=== PATIENT | female | born 1980 | race Caucasian/White ===

== ENCOUNTER 2016-08-04 13:53 | Inpatient (IN) | payer OTHER ==
[2016-08-04] VITALS (9 sets, daily range): BP systolic 116–149; BP diastolic 71–96; PULSE 88–129; RESP 16–18; TEMP 98.3–103; O2SAT 94–98
[~2016-08-04] VITALS: Ht 167.6 cm; Wt 77.5 kg
[~2016-08-04 13:53] MED LIST: HYDR-3533 PO; PERC7.5T13 PO; PROM12.54 PO; WELLTAB39 PO
[2016-08-04] MEDS ORDERED: SODIUM CHLOR 0.9% 1000 ML INJ 400 ML IV ONE (14:09)
[2016-08-04] MEDS ORDERED: SODIUM CHLOR 0.9% 1000 ML INJ 1,000 ML IV ONE ×2 (14:09)
[2016-08-04] MEDS ORDERED: IBUPROFEN 800 MG TAB PO ONE (14:15)
--- NOTE | 2016-08-04 14:27 | PD ---
HPI Chief Complaint: Cold / Flu Symptoms Time Seen by Provider: 14:05 Travel History International Travel<30 days: No Contact w/Intl Traveler<30days: No Traveled to known affect area: No History of Present Illness HPI Patient's 35-year-old female who presents emergency for evaluation of fevers, body aches, headache. Patient states her symptoms started 3 days ago. She's been taking acetaminophen for her fevers. She denies any nausea, vomiting, chest pain, shortness of breath, abdominal pain, diarrhea. Patient states she is currently being treated for TB exposure, for the last 3 months. 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 She denies any neck pain. PFSH Past Medical History Arthritis: No Anxiety: Yes Depression: Yes Heart Rhythm Problems: No Cancer: No Cardiovascular Problems: Yes High Cholesterol: No Chest Pain: Yes Congestive Heart Failure: No Cerebrovascular Accident: No Diabetes: No Diminished Hearing: No Endocrine: No GERD: No Glaucoma: No Genitourinary: Yes (REDUCED KIDNEY FUNCTION secondary to overuse of ibuprofen) Headaches: Yes Hepatitis: No Hiatal Hernia: No Hypertension: No Immune Disorder: No Kidney Stones: No Musculoskeletal: No Reproductive: Yes (endometriosis) Respiratory: No Immunizations Current: Yes Migraines: Yes Renal Failure: No Seizures: No Thyroid Disease: No Ulcer: Yes ?: Not : 4 Para: 2 Miscarriage: 2 Dilation and Curettage (D&C): Yes Past Surgical History Abdominal Surgery: Yes (cholectystectomy, hysterectomy) Body Medical Devices: BREAST IMPLANTS Cardiac Surgery: No Section: Yes Cholecystectomy: Yes Ear Surgery: No Endocrine Surgery: No Eye Surgery: Yes (SINUS ) Genitourinary Surgery: No Gynecologic Surgery: Yes (laparoscopy) Hysterectomy: Yes Joint Replacement: No Oral Surgery: Yes (WISDOM TEETH EXTRACTION) Pacemaker: No Thoracic Surgery: No Other Surgery: Yes (sinus surgery, breast augmetation) Social History Alcohol Use: Yes (occasional) Tobacco Use: No Substance Use: No Allergies-Medications (Allergen,Severity, Reaction): Coded Allergies: Nonsteroidal Anti-Inflammatory Agts (Verified Adverse Reaction, Intermediate, Kidney Dysfunction, 08/04/16) Had kidney dysfunction after taking topamax for migraines. Was told not to take NSAIDS Reported Meds & Prescriptions Reported Meds & Active Scripts Active Reported Ambien (Zolpidem Tartrate) 10 Mg Tab 10 Mg PO HS PRN Promethazine (Promethazine HCl) 12.5 Mg Tab 12.5 Mg PO Q4H PRN Wellbutrin Xl 24 HR (Bupropion HCl) 300 Mg Tab 300 Mg PO DAILY Wellbutrin Xl 24 HR (Bupropion HCl) 150 Mg Tab 150 Mg PO DAILY Isoniazid 100 Mg Tab 100 Mg PO DAILY Review of Systems Except as stated in HPI: all other systems reviewed are Neg General / Constitutional: Positive: Fever, Chills HENT: Positive: Headaches, No: Neck Stiffness, Neck Pain Cardiovascular: No: Chest Pain or Discomfort Respiratory: Positive: Cough, No: Shortness of Breath Gastrointestinal: No: Nausea, Vomiting, Diarrhea, Abdominal Pain Musculoskeletal: Positive: Myalgias Neurologic: Positive: Weakness, Dizziness Physical Exam Narrative GENERAL: Well-developed, well-nourished, alert female. Appears acutely ill, in no acute distress. SKIN: Warm and dry. HEAD: Atraumatic. Normocephalic. EYES: Pupils equal and round. No scleral icterus. No injection or drainage. ENT: No nasal bleeding or discharge. Mucous membranes pink and moist. NECK: Trachea midline. No JVD. CARDIOVASCULAR: Tachycardic, No murmur appreciated. RESPIRATORY: No accessory muscle use. Clear to auscultation. Diminished slightly in bases. GASTROINTESTINAL: Abdomen soft, non-tender, nondistended. Hepatic and splenic margins not palpable. MUSCULOSKELETAL: No obvious deformities. No clubbing. No cyanosis. No edema. NEUROLOGICAL: Awake and alert. No obvious cranial nerve deficits. Motor grossly within normal limits. Normal speech. No meningeal signs PSYCHIATRIC: Appropriate mood and affect; insight and judgment normal. Data Data Last Documented VS Vital Signs Date Time Temp Pulse Resp B/P Pulse Ox O2 Delivery O2 Flow Rate FiO2 08/04/16 15:14 101.8 109 18 142/76 98 Room Air Orders Electrocardiogram (08/04/16 14:09) Complete Blood Count With Diff (08/04/16 14:09) Comprehensive Metabolic Panel (08/04/16 14:09) Lactic Acid Sepsis Protocol (08/04/16 14:09) Urinalysis - C+S If Indicated (08/04/16 14:09) Influenzae A/B Antigen (08/04/16 14:09) Blood Culture (08/04/16 14:09) Chest, Single Ap (08/04/16 14:09) Blood Glucose (08/04/16 14:09) Ecg Monitoring (08/04/16 14:09) Iv Access Insert/Monitor (08/04/16 14:09) Oximetry (08/04/16 14:09) Oxygen Administration (08/04/16 14:09) Sodium Chlor 0.9% 1000 Ml Inj (Ns 1000 M (08/04/16 14:09) Sodium Chlor 0.9% 1000 Ml Inj (Ns 1000 M (08/04/16 14:09) Sodium Chlor 0.9% 1000 Ml Inj (Ns 1000 M (08/04/16 14:09) Ed Urine Pregnancytest Poc (08/04/16 14:09) Ibuprofen (Motrin) (08/04/16 14:15) Vancomycin Inj (Vancomycin Inj) (08/04/16 14:52) Piperacil-Tazo 4.5 Gm Premix (Zosyn 4.5 (08/04/16 14:52) Urine Culture (08/04/16 14:15) Azithromycin Inj (Zithromax Inj) (08/04/16 15:05) Potassium Chloride (Kcl) (08/04/16 15:15) Acetamin-Hydrocod 325-5 Mg ([place] 5-325 (08/04/16 15:15) Admit Order (Ed Use Only) (08/04/16 15:27) Sputum Culture And Gram Stain (08/04/16 15:27) Pneumococcal Urinary Antigen (08/04/16 15:27) Legionella Urinary Antigen (08/04/16 15:27) Labs Laboratory Tests Test 08/04/16 08/04/16 14:15 14:25 White Blood Count 9.4 TH/MM3 Red Blood Count 4.49 MIL/MM3 Hemoglobin 13.1 GM/DL Hematocrit 39.2 % Mean Corpuscular Volume 87.2 FL Mean Corpuscular Hemoglobin 29.0 PG Mean Corpuscular Hemoglobin 33.3 % Concent Red Cell Distribution Width 12.1 % Platelet Count 239 TH/MM3 Mean Platelet Volume 8.8 FL Neutrophils (%) (Auto) 73.6 % Lymphocytes (%) (Auto) 16.9 % Monocytes (%) (Auto) 8.2 % Eosinophils (%) (Auto) 0.8 % Basophils (%) (Auto) 0.5 % Neutrophils # (Auto) 6.9 TH/MM3 Lymphocytes # (Auto) 1.6 TH/MM3 Monocytes # (Auto) 0.8 TH/MM3 Eosinophils # (Auto) 0.1 TH/MM3 Basophils # (Auto) 0.0 TH/MM3 CBC Comment DIFF FINAL Differential Comment Urine Collection Type CLEAN CATCH Urine Color YELLOW Urine Turbidity CLEAR Urine pH 6.5 Urine Specific [place] 1.022 Urine Protein 30 mg/dL Urine Glucose (UA) NEG mg/dL Urine Ketones TRACE mg/dL Urine Occult Blood MOD Urine Nitrite NEG Urine Bilirubin NEG Urine Leukocyte Esterase NEG Urine RBC 20-24 /hpf Urine WBC 0-2 /hpf Urine Squamous Epithelial 0-5 /hpf Cells Urine Bacteria MOD /hpf Microscopic Urinalysis Comment CULTURE INDICATED Urine Collection Time 14:15 Sodium Level 141 MEQ/L Potassium Level 3.3 MEQ/L Chloride Level 107 MEQ/L Carbon Dioxide Level 25.1 MEQ/L Anion Gap 9 MEQ/L Blood Urea Nitrogen 7 MG/DL Creatinine 0.92 MG/DL Estimat Glomerular Filtration 70 ML/MIN Rate Random Glucose 100 MG/DL Calcium Level 8.2 MG/DL Total Bilirubin 0.5 MG/DL Aspartate Amino Transf 9 U/L (AST/SGOT) Alanine Aminotransferase 14 U/L (ALT/SGPT) Alkaline Phosphatase 28 U/L Total Protein 7.5 GM/DL Albumin 3.6 GM/DL Lactic Acid Level 1.3 mmol/L [facility] Medical Decision Making Medical Screen Exam Complete: Yes Emergency Medical Condition: Yes Interpretation(s) Last Impressions Chest X-Ray 08/04/16 1409 Signed Impressions: Service Date/Time: Thursday, August 04, 2016 14:47 - CONCLUSION: Left lower lobe airspace consolidation. Given the history of fever and cough this is characteristic of an infectious process/pneumonia. Jimmie Arredondo MD Laboratory Tests Test 08/04/16 08/04/16 14:15 14:25 White Blood Count 9.4 TH/MM3 Red Blood Count 4.49 MIL/MM3 Hemoglobin 13.1 GM/DL Hematocrit 39.2 % Mean Corpuscular Volume 87.2 FL Mean Corpuscular Hemoglobin 29.0 PG Mean Corpuscular Hemoglobin 33.3 % Concent Red Cell Distribution Width 12.1 % Platelet Count 239 TH/MM3 Mean Platelet Volume 8.8 FL Neutrophils (%) (Auto) 73.6 % Lymphocytes (%) (Auto) 16.9 % Monocytes (%) (Auto) 8.2 % Eosinophils (%) (Auto) 0.8 % Basophils (%) (Auto) 0.5 % Neutrophils # (Auto) 6.9 TH/MM3 Lymphocytes # (Auto) 1.6 TH/MM3 Monocytes # (Auto) 0.8 TH/MM3 Eosinophils # (Auto) 0.1 TH/MM3 Basophils # (Auto) 0.0 TH/MM3 CBC Comment DIFF FINAL Differential Comment Urine Collection Type CLEAN CATCH Urine Color YELLOW Urine Turbidity CLEAR Urine pH 6.5 Urine Specific [place] 1.022 Urine Protein 30 mg/dL Urine Glucose (UA) NEG mg/dL Urine Ketones TRACE mg/dL Urine Occult Blood MOD Urine Nitrite NEG Urine Bilirubin NEG Urine Leukocyte Esterase NEG Urine RBC 20-24 /hpf Urine WBC 0-2 /hpf Urine Squamous Epithelial 0-5 /hpf Cells Urine Bacteria MOD /hpf Microscopic Urinalysis Comment CULTURE INDICATED Urine Collection Time 14:15 Sodium Level 141 MEQ/L Potassium Level 3.3 MEQ/L Chloride Level 107 MEQ/L Carbon Dioxide Level 25.1 MEQ/L Anion Gap 9 MEQ/L Blood Urea Nitrogen 7 MG/DL Creatinine 0.92 MG/DL Estimat Glomerular Filtration 70 ML/MIN Rate Random Glucose 100 MG/DL Calcium Level 8.2 MG/DL Total Bilirubin 0.5 MG/DL Aspartate Amino Transf 9 U/L (AST/SGOT) Alanine Aminotransferase 14 U/L (ALT/SGPT) Alkaline Phosphatase 28 U/L Total Protein 7.5 GM/DL Albumin 3.6 GM/DL Lactic Acid Level 1.3 mmol/L Vital Signs Date Time Temp Pulse Resp B/P Pulse Ox O2 Delivery O2 Flow Rate FiO2 08/04/16 14:01 103.0 129 16 146/96 94 Differential Diagnosis Sepsis versus influenza versus urinary tract infection versus acute kidney injury versus pneumonia versus other Narrative Course Patient is a 35-year-old female who presented to emergency for evaluation of fevers, body aches, headaches. Patient symptoms and ongoing for approximately 3 days. On arrival patient was noted to have a heart rate in the 130s is febrile with a temp of 103. Sepsis protocol initiated. Initial EKG shows sinus tachycardia with a rate of 110. IV fluids at 30 mL/kg ordered per sepsis protocol. Ibuprofen 800 mg ordered for fever. CBC shows no elevated white count but patient does have a left shift. Chemistry with potassium at 3.3, oral replacement ordered. Lactic acid is normal, urinalysis with elevated ketones and blood. Patient is a completion of second liter of IV fluids and remains tachycardic with a rate of 110. Temp reassessed at 101.8 after ibuprofen was administered approximately 30 minutes ago. Influenza swab was negative. Fever and heart rate meet sepsis criteria. Chest x-ray shows a left lower lobe consolidation, this coupled with patient's presenting symptoms is likely for an infectious process/pneumonia. Again patient was exposed to TB approximately 3 months ago and is under going treatment for that. Discussed with my attending physician. Patient would benefit from inpatient stay, IV antibiotics, IV fluid replacement, possible evaluation by pulmonology due to exposure to TB. Patient is agreeable to stay. Dr. Fournier accepted admission. Legionella and pneumococcal antigen's ordered , sputum culture ordered and pending. Patient given Lortab per my attending physician for headache. She is resting comfortably with at bedside. Sepsis Criteria SIRS Criteria (2 or more): Temp > 100.9 or < 96.8, Heart rate over 90 Sepsis Criteria (SIRS+source): Infect source susp/known (pulmonary) Physician Communication Physician Communication Dr. Aleksandr Fournier Diagnosis Primary Impression: Pneumonia Qualified Code: J18.1 - Pneumonia of left lower lobe due to infectious organism Additional Impressions: Tuberculosis exposure On isoniazid therapy Hematuria Sepsis Qualified Code: A41.9 - Sepsis, due to unspecified organism Hypokalemia Admitting Information Admitting Physician Requests: Admit Condition: Hellen Holloway Aug 04, 2016 14:27
[2016-08-04 14:38] LABS: AUTOMATED NEUTROPHIL # 6.9 TH/MM3 (1.8-7.7); BASOPHIL % 0.5 % (0.0-2.0); EOSINOPHIL # 0.1 TH/MM3 (0-0.4); EOSINOPHIL % 0.8 % (0.0-4.0); HEMATOCRIT 39.2 % (35.0-46.0); HEMO FLAGS DIFF FINAL; LYMPH % 16.9 % (9.0-44.0); LYMPHOCYTE # 1.6 TH/MM3 (1.0-4.8); MEAN CELL VOLUME 87.2 FL (80.0-100.0); MEAN CORPUSCULAR HGB CONC 33.3 % (32.0-36.0); MONO % 8.2 % (0.0-8.0); NEUT % 73.6 % (16.0-70.0); PLATELET COUNT 239 TH/MM3 (150-450); RED BLOOD COUNT 4.49 MIL/MM3 (4.00-5.30); RED CELL DISTRIBUTION WIDTH 12.1 % (11.6-17.2); WHITE BLOOD COUNT 9.4 TH/MM3 (4.0-11.0)
[2016-08-04 14:45] LABS: GLUCOSE,URINE NEG (NEG); KETONE, URINE TRACE mg/dL (NEG); NITRITE,URINE NEG (NEG); PH, URINE 6.5 (5.0-8.5)
[2016-08-04 14:46] LABS: BLOOD, URINE MOD (NEG)
[2016-08-04] MEDS ORDERED: ISON100T2 PO (14:49)
[2016-08-04 14:50] LABS: CHLORIDE 107 MEQ/L (98-107); POTASSIUM 3.3 MEQ/L (3.5-5.1); SODIUM (NA) 141 MEQ/L (136-145)
[2016-08-04] MEDS ORDERED: PIPERACIL-TAZO 4.5 GM PREMIX 100 ML IV STA (14:52)
[2016-08-04] MEDS ORDERED: VANCOMYCIN INJ 1,000 MG in SODIUM CHLOR 0.9% 250 ML INJ 250 ML IV STA (14:52)
[2016-08-04 14:53] LABS: BACTERIA, URINE MOD /hpf; COMMENT (UR) CULTURE INDICATED; CULTURE IF INDICATED CULTURE INDICATED; METHOD OF COLLECTION CLEAN CATCH; SQUAMOUS EPITHELIAL CELL URINE 0-5 /hpf (0-5); URINE COLOR YELLOW (YELLW/STRAW); WBC, URINE 0-2 /hpf (0-5)
[2016-08-04 14:56] LABS: ANION GAP 9 MEQ/L (5-15); BICARBONATE 25.1 MEQ/L (21.0-32.0); BLOOD UREA NITROGEN 7 MG/DL (7-18)
[2016-08-04 14:59] LABS: ALT (GPT) 14 U/L (10-53); AST (GOT) 9 U/L (15-37); GLOMERULAR FILTRATION RATE 70 ML/MIN (>89)
[2016-08-04 15:01] LABS: TOTAL BILIRUBIN ADULT 0.5 MG/DL (0.2-1.0)
[2016-08-04 15:02] LABS: ALKALINE PHOSPHATASE 28 U/L (45-117)
--- NOTE | 2016-08-04 15:02 | RADHPO ---
EXAM DATE/TIME: 08/04/2016 14:47 [facility] COMPARISON: CT ABDOMEN & PELVIS W CONTRAST, November 10, 2015, 13:02. INDICATIONS : Fever, cough, short of breath, body aches MEDICAL HISTORY : None. SURGICAL HISTORY : None. ENCOUNTER: Initial ACUITY: 3 days PAIN SCORE: 0/10 LOCATION: Bilateral chest FINDINGS: AP view of the chest demonstrates a normal-sized cardiac silhouette. There is an opacity in the retro cardiac region that appears to represent airspace consolidation. No pleural effusion or pneumothorax is identified. Breast implants are present. CONCLUSION: Left lower lobe airspace consolidation. Given the history of fever and cough this is characteristic o f an infectious process/pneumonia. Jimmie Arredondo MD on August 04, 2016 at 15:00 Board Certified Radiologist. This report was verified electronically.
[2016-08-04] MEDS ORDERED: AZITHROMYCIN INJ 500 MG in SODIUM CHLOR 0.9% 250 ML INJ 250 ML IV STA (15:05)
[2016-08-04] MEDS ORDERED: POTASSIUM CHLORIDE 20 MEQ CONTROLLED RELEASE TAB PO ONE (15:15)
[2016-08-04] MEDS ORDERED: ACETAMINOPHEN/HYDROcodone 325 MG/5 MG TAB PO ONE (15:15)
[2016-08-04] MEDS ORDERED: SODIUM CHLORIDE 0.9% FLUSH 5 ML FLUSH IVF PRN (16:00)
[2016-08-04] MEDS ORDERED: SODIUM CHLORIDE 0.9% FLUSH 5 ML FLUSH IV FLUSH PRN (16:00)
[2016-08-04] MEDS ORDERED: PROM12.54 PO (16:56)
[2016-08-04] MEDS ORDERED: AMBI10TA PO (16:56)
[2016-08-04] MEDS ORDERED: BUPR150XL PO (16:56)
[2016-08-04] MEDS ORDERED: WELLTAB39 PO (16:56)
[2016-08-04] MEDS: PROMETHAZINE HCL 25 MG TAB PO PRN (17:24)
[2016-08-04] MEDS: NS + KCL 20 MEQ INJ 1,000 ML IV SCH (17:26)
[2016-08-04] MEDS ORDERED: ACETAMIN 325 MG/BUTALBITAL 50 MG/CAFFEINE 40 MG TAB PO ONE (17:30)
[2016-08-04] MEDS ORDERED: ZOLPIDEM TARTRATE 10 MG TAB PO PRN ×2 (17:30→19:15)
--- NOTE | 2016-08-04 19:01 | HHI.HP ---
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 She has been using Tylenol for her fevers as she tries to avoid nonsteroidal anti- inflammatories due to previous problems with kidney function while taking nonsteroidals. Denies any recent foreign travel. 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 She has had no symptoms of TB such as night sweats, cough, weight loss. She has been compliant with her isoniazid. Per healthcare provider in the ER patient was noted to be febrile and have infiltrate on chest x-ray with tachycardia and mild tachypnea. She was given IV fluids and antibiotics. Patient reports she still has a headache which is common for her given her migraine history but not the worst headache of her life. Headache has responded some to current medication. She feels a little bit stronger since getting the IV fluids and having her fever controlled. She does not appear toxic. Review of Systems Constitutional: COMPLAINS OF: Diaphoretic episodes, Fatigue, Fever, Chills, DENIES: Weight gain, Weight loss, Dizziness, Change in appetite, Night Sweats Endocrine: DENIES: Heat/cold intolerance, Polydipsia, Polyuria, Polyphagia Eyes: DENIES: Blurred vision, Diplopia, Eye inflammation, Eye pain, Vision loss , Photosensitivity, Double Vision Ears, nose, mouth, throat: DENIES: Tinnitus, Hearing loss, Vertigo, Nasal discharge, Oral lesions, Throat pain, Hoarseness, Ear Pain, Running Nose, Epistaxis, Sinus Pain, Toothache, Odynophagia Respiratory: COMPLAINS OF: Cough, DENIES: Apneas, Snoring, Wheezing, Hemoptysis, Sputum production, Shortness of breath Cardiovascular: DENIES: Chest pain, Palpitations, Syncope, Dyspnea on Exertion , PND, Lower Extremity Edema, Orthopnea, Claudication Gastrointestinal: COMPLAINS OF: Vomiting, DENIES: Abdominal pain, Black stools , Bloody stools, BRB per rectum, Constipation, Diarrhea, GERD, Nausea, Reflux, Difficulty Swallowing, Anorexia, See HPI Musculoskeletal: DENIES: Joint pain, Muscle aches, Stiffness, Joint Swelling, Back pain, Neck pain Hematologic/lymphatic: DENIES: Bruising, Lymphadenopathy Immunologic/allergic: DENIES: Eczema, Urticaria Neurologic: COMPLAINS OF: Headache Psychiatric: COMPLAINS OF: Anxiety Past Family Social History Past Medical History Anxiety Depression Migrainous headaches Hx endometriosis, adenomyosis Past Surgical History [id number] for endometriosis/adenomyosis Breast implantation section 1 Unspecified sinus repair Dilation and curettage [place] teeth removal Reported Medications Ambien (Zolpidem Tartrate) 10 Mg Tab 10 Mg PO HS PRN Promethazine (Promethazine HCl) 12.5 Mg Tab 12.5 Mg PO Q4H PRN Wellbutrin Xl 24 HR (Bupropion HCl) 300 Mg Tab 300 Mg PO DAILY Wellbutrin Xl 24 HR (Bupropion HCl) 150 Mg Tab 150 Mg PO DAILY Isoniazid 100 Mg Tab 100 Mg PO DAILY since April 2016. Allergies: Coded Allergies: Nonsteroidal Anti-Inflammatory Agts (Verified Adverse Reaction, Intermediate, Kidney Dysfunction, 08/04/16) Had kidney dysfunction after taking topamax for migraines. Was told not to take NSAIDS Family History Multiple family members with migraines, otherwise noncontributory. Social History No tobacco History of occasional alcohol but no alcohol since April 2016 when she started isoniazid Denies illicit drugs She is and has 2 biological children. 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 Physical Exam Vital Signs Vital Signs Date Time Temp Pulse Resp B/P Pulse Ox O2 Delivery O2 Flow Rate FiO2 08/04/16 17:38 93 08/04/16 17:00 101.0 98 16 140/83 98 08/04/16 16:00 98 21 08/04/16 15:14 101.8 109 18 142/76 98 Room Air 08/04/16 14:42 97 Room Air 08/04/16 14:42 103.0 107 18 149/83 98 Room Air 08/04/16 14:01 103.0 129 16 146/96 94 Physical Exam GENERAL: This is a well-nourished, well-developed patient, in no apparent distress. SKIN: No rashes, ecchymoses or lesions. Cool and dry. HEAD: Atraumatic. Normocephalic. No temporal or scalp tenderness. EYES: Pupils equal round and reactive. Extraocular motions intact. No scleral icterus. No injection or drainage. ENT: Nose without bleeding, purulent drainage or septal hematoma. Airway patent. NECK: Trachea midline. No JVD or lymphadenopathy. Supple, nontender, no meningeal signs. CARDIOVASCULAR: Regular rate and rhythm without murmurs, gallops, or rubs. RESPIRATORY: Clear to auscultation. Breath sounds equal bilaterally. No wheezes , rales, or rhonchi. No egophony. GASTROINTESTINAL: Abdomen soft, non-tender, nondistended. No hepato-splenomegaly , or palpable masses. No guarding. MUSCULOSKELETAL: Extremities without clubbing, cyanosis, or edema. No joint tenderness, effusion, or edema noted. No calf tenderness. Negative Homans sign bilaterally. NEUROLOGICAL: Awake and alert. Cranial nerves II through XII intact. Motor and sensory grossly within normal limits. Five out of 5 muscle strength in all muscle groups. Normal speech. Laboratory Laboratory Tests Test 08/04/16 08/04/16 14:15 14:25 White Blood Count 9.4 Red Blood Count 4.49 Hemoglobin 13.1 Hematocrit 39.2 Mean Corpuscular Volume 87.2 Mean Corpuscular Hemoglobin 29.0 Mean Corpuscular Hemoglobin 33.3 Concent Red Cell Distribution Width 12.1 Platelet Count 239 Mean Platelet Volume 8.8 Neutrophils (%) (Auto) 73.6 Lymphocytes (%) (Auto) 16.9 Monocytes (%) (Auto) 8.2 Eosinophils (%) (Auto) 0.8 Basophils (%) (Auto) 0.5 Neutrophils # (Auto) 6.9 Lymphocytes # (Auto) 1.6 Monocytes # (Auto) 0.8 Eosinophils # (Auto) 0.1 Basophils # (Auto) 0.0 CBC Comment DIFF FINAL Differential Comment Urine Collection Type CLEAN CATCH Urine Color YELLOW Urine Turbidity CLEAR Urine pH 6.5 Urine Specific [place] 1.022 Urine Protein 30 Urine Glucose (UA) NEG Urine Ketones TRACE Urine Occult Blood MOD Urine Nitrite NEG Urine Bilirubin NEG Urine Leukocyte Esterase NEG Urine RBC 20-24 Urine WBC 0-2 Urine Squamous Epithelial 0-5 Cells Urine Bacteria MOD Microscopic Urinalysis Comment CULTURE INDICATED Urine Collection Time 14:15 Sodium Level 141 Potassium Level 3.3 Chloride Level 107 Carbon Dioxide Level 25.1 Anion Gap 9 Blood Urea Nitrogen 7 Creatinine 0.92 Estimat Glomerular Filtration 70 Rate Random Glucose 100 Calcium Level 8.2 Total Bilirubin 0.5 Aspartate Amino Transf 9 (AST/SGOT) Alanine Aminotransferase 14 (ALT/SGPT) Alkaline Phosphatase 28 Total Protein 7.5 Albumin 3.6 Lactic Acid Level 1.3 Date/Time Procedure Status Source Growth 08/04/16 16:20 Legionella Antigen Received Urine Clean Catch Pending 08/04/16 16:20 Streptococcus pneumoniae Antigen (M Received Urine Clean Catch Pending 08/04/16 14:25 Aerobic Blood Culture Received Blood Peripheral Pending 08/04/16 14:25 Anaerobic Blood Culture Received Blood Peripheral Pending 08/04/16 14:15 Urine Culture Received Urine Clean Catch Pending 08/04/16 14:15 Influenza Types A,B Antigen (ROLA) - Final Complete Nasal Washing NEGATIVE FOR FLU A AND B ANTIGEN.... Result Diagram: 08/04/16 1415 08/04/16 1415 Imaging Last 72 hours Impressions Chest X-Ray 08/04/16 1409 Signed Impressions: Service Date/Time: Thursday, August 04, 2016 14:47 - CONCLUSION: Left lower lobe airspace consolidation. Given the history of fever and cough this is characteristic of an infectious process/pneumonia. Jimmie Arredondo MD Septic Shock Reassessment Heart: Regular rate and rhythm Lungs: Clear Skin: Warm, Moist Peripheral Pulses: Bounding Right Radial Bounding Left Radial Bounding Right Posterior Tibial Bounding Left Posterior Tibial Capillary Refill: Brisk Assessment and Plan Problem List: (1) Pneumonia Status: Acute Plan: Continue antibiotics. I have chosen to use azithromycin for atypical coverage and to use Zosyn given her occupation and frequent exposure to hospitalized agents with respiratory elements. We'll continue to follow. She does not appear toxic. (2) Sepsis Status: Acute Plan: As noted above. Likely source is pneumonia however her urinalysis is somewhat abnormal as well. (3) On isoniazid therapy Status: Chronic Plan: Ongoing since April 2016 due to previous reported positive Quantiferon tuberculin test No active TB. Continue therapy (4) Migraine headache Status: Chronic Plan: Continue home medication. Use Fioricet as needed. We'll give 1 dose of Solu-Medrol. Long standing problem. (5) Depression Status: Chronic Plan: Stable. Continue current medication. (6) Hypokalemia Status: Acute Plan: Replace and recheck. Code Status full Discussed Condition With Patient Physician Certification 2 Midnight Certification Type: Admission for Inpatient Services Order for Inpatient Services The services are ordered in accordance with Medicare regulations or non- Medicare payer requirements, as applicable. In the case of services not specified as inpatient-only, they are appropriately provided as inpatient services in accordance with the 2-midnight benchmark. Estimated LOS (days): 2 days is the estimated time the patient will need to remain in the hospital, assuming treatment plan goals are met and no additional complications. Post-Hospital Plan: Home Problem Qualifiers (1) Pneumonia: Qualified Code: J18.1 - Pneumonia of left lower lobe due to infectious organism (2) Sepsis: Qualified Code: A41.9 - Sepsis, due to unspecified organism (3) Migraine headache: Jordy Fournier PhD Aug 04, 2016 19:01
[2016-08-04] MEDS ORDERED: methylPREDNISolone SOD SUCC 40 MG/1 ML VIAL IV PUSH ONE (19:15)
[2016-08-04] MEDS ORDERED: SODIUM CHLORIDE 0.9% FLUSH 5 ML FLUSH IVF SCH (21:00)
[2016-08-04] MEDS: SODIUM CHLORIDE 0.9% FLUSH 5 ML FLUSH IV FLUSH SCH (21:00)
[2016-08-04] MEDS: PIPERACIL-TAZO 4.5 GM PREMIX 100 ML IV SCH (22:37)
[2016-08-04] MEDS: ACETAMINOPHEN 500 MG CPLT PO PRN (22:43)
[2016-08-05] VITALS: BP 125/76; PULSE 95; RESP 16; TEMP 100.8; O2SAT 96
[2016-08-05] MEDS: PIPERACIL-TAZO 4.5 GM PREMIX 100 ML IV SCH ×2 (03:29→09:49)
[2016-08-05] MEDS: NS + KCL 20 MEQ INJ 1,000 ML IV SCH (03:29)
[2016-08-05 03:30] VITALS: TEMP 99.6
[2016-08-05] MEDS: ACETAMINOPHEN 500 MG CPLT PO PRN (04:15)
[2016-08-05] MEDS: PROMETHAZINE HCL 25 MG TAB PO PRN (05:04)
[2016-08-05 07:14] LABS: POTASSIUM 3.8 MEQ/L (3.5-5.1)
[2016-08-05 07:21] LABS: BICARBONATE 20.8 MEQ/L (21.0-32.0)
--- NOTE | 2016-08-05 07:27 | HHI.PR ---
Subjective Remarks Patient is defervescing and her saturations are fine. She actually has no complaints from respiratory standpoint but is having a migraine. This is not the worst headache of her life. She has had migraine most of the night she says and is trying to "sleep it off". Objective Vitals Vital Signs Date Time Temp Pulse Resp B/P Pulse Ox O2 Delivery O2 Flow Rate FiO2 08/05/16 03:30 99.6 08/05/16 00:00 100.8 95 16 125/76 96 08/04/16 20:20 98 21 08/04/16 20:00 98.3 88 16 116/71 97 08/04/16 19:52 97 08/04/16 17:38 93 08/04/16 17:00 101.0 98 16 140/83 98 08/04/16 16:00 98 21 08/04/16 15:14 101.8 109 18 142/76 98 Room Air 08/04/16 14:42 97 Room Air 08/04/16 14:42 103.0 107 18 149/83 98 Room Air 08/04/16 14:01 103.0 129 16 146/96 94 08/04/16 08/04/16 08/05/16 15:00 23:00 07:00 Intake Total 977 ml 1045 ml Balance 977 ml 1045 ml Intake Oral 200 ml 400 ml IV Total 777 ml 645 ml # Voids 1 2 # Bowel Movements 0 0 GENERAL: Awake and alert. mild distress associated with her headache. Cooperative with exam. SKIN: Intact and slightly diaphoretic. HEAD: Normocephalic. No signs of trauma. No temporal artery tenderness. EYES: No scleral icterus. No injection or drainage. Extra ocular motion intact and pupils were equal bilaterally. NECK: Supple, trachea midline. No JVD or lymphadenopathy. CARDIOVASCULAR: Regular rate and rhythm without murmurs, gallops, or rubs. RESPIRATORY: Breath sounds equal bilaterally. No accessory muscle use. GASTROINTESTINAL: Abdomen soft, non-tender, nondistended. Bowel sounds normal. MUSCULOSKELETAL: No cyanosis, or edema. BACK: Nontender without obvious deformity. Result Diagram: 08/04/16 1415 08/05/16 0650 Imaging Last 72 hours Impressions Chest X-Ray 08/04/16 1405 Signed Impressions: Service Date/Time: Thursday, August 04, 2016 14:47 - CONCLUSION: Left lower lobe airspace consolidation. Given the history of fever and cough this is characteristic of an infectious process/pneumonia. Jimmie Arredondo MD Urinary Catheter: No Vascular Central Line Catheter: No A/P Problem List: (1) Pneumonia Status: Acute Plan: Continue antibiotics. I have chosen to use azithromycin for atypical coverage and to use Zosyn given her occupation and frequent exposure to hospitalized agents with respiratory elements. We'll continue to follow. She does not appear toxic and is quite stable from pulmonary standpoint. (2) Sepsis Status: Acute Plan: As noted above. Likely source is pneumonia however her urinalysis is somewhat abnormal as well. (3) On isoniazid therapy Status: Chronic Plan: Ongoing since April 2016 due to previous reported positive Quantiferon tuberculin test No active TB and no need for respiratory isolation. Continue therapy (4) Migraine headache Status: Chronic Plan: Continue home medication. Use Fioricet as needed. Current exacerbation of a long standing problem. We'll try Benadryl, Reglan, Toradol, and low-dose Dilaudid time 1. It is noted the patient is not actually allergic to nonsteroidals but had some slight elevation of her renal indices in the past when she chronically took over -the-counter Aleve or Motrin. Renal indices are normal presently. (5) Depression Status: Chronic Plan: Stable. Continue current medication. (6) Hypokalemia Status: Acute Plan: Improved after replacement. Continue current IV. Discharge Planning Hopefully discharge tomorrow. Problem Qualifiers (1) Pneumonia: Qualified Code: J18.1 - Pneumonia of left lower lobe due to infectious organism (2) Sepsis: Qualified Code: A41.9 - Sepsis, due to unspecified organism (3) Migraine headache: Jordy Fournier PhD MD Aug 05, 2016 07:27
[2016-08-05] MEDS ORDERED: KETOROLAC TROMETHAMINE 30 MG/ML (IVP) VIAL IV PUSH ONE (07:30)
[2016-08-05] MEDS ORDERED: diphenhydrAMINE HCL 50 MG/ML VIAL IV PUSH ONE (07:30)
[2016-08-05] MEDS ORDERED: HYDROmorphone HCL PF 1 MG/ML VIAL IV PUSH ONE (07:30)
[2016-08-05] MEDS ORDERED: METOCLOPRAMIDE HCL 10 MG/2 ML VIAL IV PUSH ONE (07:30)
[2016-08-05 08:00] VITALS: BP 133/77; PULSE 85; RESP 18; TEMP 99.7; O2SAT 96
[2016-08-05] MEDS ORDERED: ISONIAZID 300 MG TAB PO SCH (09:00)
[2016-08-05] MEDS ORDERED: buPROPion HCL 150 MG EXTENDED RELEASE TAB PO SCH ×2 (09:00)
[2016-08-05] MEDS ORDERED: ISONIAZID 100 MG TAB PO SCH (09:00)
[2016-08-05] MEDS ORDERED: buPROPion HCL 150 MG SUSTAINED RELEASE TAB PO SCH (09:00)
[2016-08-05] MEDS: SODIUM CHLORIDE 0.9% FLUSH 5 ML FLUSH IV FLUSH SCH (09:09)
[2016-08-05] MEDS ORDERED: CEFD300C PO (09:29)
[2016-08-05] MEDS ORDERED: AZIT250T3 PO (09:29)
--- NOTE | 2016-08-05 09:33 | HHI.DS ---
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 She has been using Tylenol for her fevers as she tries to avoid nonsteroidal anti- inflammatories due to previous problems with kidney function while taking nonsteroidals. Denies any recent foreign travel. 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 She has had no symptoms of TB such as night sweats, cough, weight loss. She has been compliant with her isoniazid. Per healthcare provider in the ER patient was noted to be febrile and have infiltrate on chest x-ray with tachycardia and mild tachypnea. She was given IV fluids and antibiotics. Patient reports she still has a headache which is common for her given her migraine history but not the worst headache of her life. Headache has responded some to current medication. She feels a little bit stronger since getting the IV fluids and having her fever controlled. She does not appear toxic. CBC/BMP: 08/04/16 1415 08/05/16 0650 Significant Findings Laboratory Tests Test 08/04/16 08/05/16 14:15 06:50 Neutrophils (%) (Auto) 73.6 % (16.0-70.0) Monocytes (%) (Auto) 8.2 % (0.0-8.0) Urine Protein 30 mg/dL (NEG-TRACE) Urine Ketones TRACE mg/dL (NEG) Urine Occult Blood MOD (NEG) Urine RBC 20-24 /hpf (0-3) Urine Bacteria MOD /hpf (NONE) Potassium Level 3.3 MEQ/L (3.5-5.1) Estimat Glomerular Filtration 70 ML/MIN (>89) Rate Calcium Level 8.2 MG/DL 7.8 MG/DL (8.5-10.1) (8.5-10.1) Aspartate Amino Transf 9 U/L (15-37) (AST/SGOT) Alkaline Phosphatase 28 U/L (45-117) Chloride Level 113 MEQ/L (98-107) Carbon Dioxide Level 20.8 MEQ/L (21.0-32.0) Blood Urea Nitrogen 6 MG/DL (7-18) Random Glucose 134 MG/DL (74-106) Imaging Last 72 hours Impressions Chest X-Ray 08/04/16 1409 Signed Impressions: Service Date/Time: Thursday, August 04, 2016 14:47 - CONCLUSION: Left lower lobe airspace consolidation. Given the history of fever and cough this is characteristic of an infectious process/pneumonia. Jimmie Arredondo MD Hospital Course Pt admitted for pneumonia. She was minimally symptomatic from resp standpoint and defervesced well. She tolerated oral intake and abx. Her main complaint during hospitalization was migraine h/a intermittently. This was controlled with meds. She and her (a copper plate printer) requested to be d/c home 08/05/16 as she can rest better at home and get migraines under control since she is sensitive to many aromas. I advised them to get back to ER if symptoms start worsening or she develops fever again. agreed to watch her closely. Pt Condition on Discharge: Good Discharge Disposition: Discharge Home Discharge Instructions DIET: Follow Instructions for: As Tolerated, No Restrictions Activities you can perform: Regular-No Restrictions Follow up Referrals: PCP Follow-up New Orders: X-RAY CHEST PA & LAT - 3 Weeks New Medications: Azithromycin (Azithromycin) 250 Mg Tab 250 MG PO DAILY Infection #5 Ref 0 TAB Cefdinir (Cefdinir) 300 Mg Cap 300 MG PO BID Infection #10 Ref 0 CAP Continued Medications: Bupropion HCl ER 24 HR (Wellbutrin Xl 24 HR) 150 Mg Tab 150 MG PO DAILY Control Depression Ref 0 TAB Bupropion HCl ER 24 HR (Wellbutrin Xl 24 HR) 300 Mg Tab 300 MG PO DAILY Control Depression Ref 0 TAB Isoniazid (Isoniazid) 100 Mg Tab 100 MG PO DAILY Mgmt Bacterial Infection Ref 0 TAB Promethazine (Promethazine) 12.5 Mg Tab 12.5 MG PO Q4H PRN NAUSEA OR VOMITING Ref 0 TAB Zolpidem (Ambien) 10 Mg Tab 10 MG PO HS PRN INSOMNIA Ref 0 TAB Jordy Fournier PhD Aug 05, 2016 09:33
[2016-08-05] MEDS ORDERED: PILL SPLITTER OTHER PRN (09:45)
[2016-08-05] MEDS ORDERED: AZITHROMYCIN INJ 500 MG in SODIUM CHLOR 0.9% 250 ML INJ 250 ML IV SCH (16:00)
--- NOTE | 2016-08-05 16:37 | EKG ---
Date Performed: 08/04/2016 Time Performed: 14:31:54 PTAGE: 35 years EKG: Sinus tachycardia Leftward axis Generalized low QRS voltages Borderline ECG NO PREVIOUS TRACING DOCTOR: Roger Walter Interpretating Date/Time 08/05/2016 16:35:36
== END 2016-08-05 12:20 | disposition home or self-care (01) | DRG 871 ==
LOC: PHEFT 13:53 → PHEDA 15:29 → PH3A 16:46
PROVIDERS: ADMIT Family Medicine; ATTEND Family Medicine
DX: A41.9 Sepsis, unspecified organism (principal); J18.9 Pneumonia, unspecified organism; G43.909 Migraine, unspecified, not intractable, without status migrainosus; E87.6 Hypokalemia; F32.9 Major depressive disorder, single episode, unspecified; Z20.1 Contact with and (suspected) exposure to tuberculosis; Z79.899 Other long term (current) drug therapy
CPT/HCPCS: 71010; 80048; 80053; 81001; 83605; 84145; 84703; 85025; 87040; 87086; 87449; 87804; 93005; 96361; 96365; J0456; J1170; J1200; J1885; J2543; J2765; J2920; J3480; J7030; J7050; Q0169